=== PATIENT | male | born 1960 | race Caucasian/White ===

== ENCOUNTER 2021-09-06 09:01 | Day surgery (SDC) | payer OTHER, SELFPAY ==
[~2021-09-06] VITALS: Ht 177.8 cm; Wt 81.6 kg
[2021-09-06 10:19] LABS: BASOPHILS # (AUTO) 0.1 K/uL (0.0-0.2); EOSINOPHILS # (AUTO) 0.1 K/uL (0.0-0.4); EOSINOPHILS % (AUTO) 1.5 % (0.0-4.0); HEMATOCRIT 43.2 % (36-54); HEMOGLOBIN 14.7 g/dL (14.0-18.0); LYMPHOCYTES # (AUTO) 1.1 K/uL (1.0-5.5); LYMPHOCYTES % (AUTO) 21.4 % (20.5-51.5); MEAN CORPUSCULAR HEMOGLOBIN 31 pg (27-31); MEAN CORPUSCULAR HGB CONC 34 % (32-36); MEAN CORPUSCULAR VOLUME 92 fL (79.0-98.0); MONOCYTES # (AUTO) 0.6 K/uL (0.0-1.0); NEUTROPHILS # (AUTO) 3.5 K/uL (1.8-7.7); NEUTROPHILS % (AUTO) 65.1 % (40.0-70.0); PLATELET COUNT (AUTO) 381 K/uL (130-430); RED CELL DISTRIBUTION WIDTH 12.5 % (9.0-15.0); WHITE BLOOD COUNT (AUTO) 5.3 K/uL (4.8-10.8)
[2021-09-06] MEDS ORDERED: CEFAZOLIN SOD 2 GM in D5W 50 ML IV ONE (10:45)
[2021-09-06] MEDS ORDERED: MIDAZOLAM HCL 5 MG/5 ML VIAL ONE (14:09)
[2021-09-06] MEDS ORDERED: ceFAZolin SODIUM 1 GM VIAL ONE (14:09)
[2021-09-06] MEDS ORDERED: PROPOFOL 200MG/ 20ML VIAL (DIPRIVAN) IV ONE (14:09)
[2021-09-06] MEDS ORDERED: METOCLOPRAMIDE HCL 10 MG/2 ML VIAL ONE (14:09)
[2021-09-06] MEDS ORDERED: fentaNYL CITRATE 250 MCG/5 ML AMP ONE (14:09)
[2021-09-06] MEDS ORDERED: SEVOFLURANE 15 MIN GAS INH ONE (14:09)
[2021-09-06] MEDS ORDERED: LR 1,000 ML IV.SOLN IV ONE (14:09)
[2021-09-06] MEDS ORDERED: NS IRRIG SOLN 1000 ML IR ONE (14:09)
[2021-09-06] MEDS ORDERED: BUPIVACAINE /EPINEPHRINE/PF 0.25% 30 ML VIAL INJ ONE (14:09)
[2021-09-06] MEDS ORDERED: DEXAMETHASONE SOD PHOSPHATE 4 MG/ML VIAL ONE (14:09)
[2021-09-06] MEDS ORDERED: MORPHINE 4 MG INJ. 4 MG/ML VIAL IVP PRN ×3 (15:15)
[2021-09-06] MEDS ORDERED: MEPERIDINE HCL/PF 25 MG/ML DISP.SYRIN IVP PRN (15:15)
[2021-09-06] MEDS ORDERED: ONDANSETRON HCL 4 MG/2 ML VIAL IVP PRN (15:15)
[2021-09-06] MEDS ORDERED: METOCLOPRAMIDE HCL 10 MG/2 ML VIAL IVP PRN (15:15)
[2021-09-06 17:39] VITALS: BP_SYST 138
== END 2021-09-06 17:30 | disposition home or self-care (01) ==
LOC: SDS 09:01 → SMU 09:26 → SDS 17:30
PROVIDERS: ATTEND Surgery
DX: L76.32 Postprocedural hematoma of skin and subcutaneous tissue following other procedure (principal); M96.840 Postprocedural hematoma of a musculoskeletal structure following a musculoskeletal system procedure; I10 Essential (primary) hypertension; E78.5 Hyperlipidemia, unspecified; Z79.899 Other long term (current) drug therapy; Z20.822 Contact with and (suspected) exposure to COVID-19
CPT/HCPCS: 10140; 36415; 85025; 87070 ×2; 87075; 87186; 87426; J0690; J1100; J2250; J2704; J2765; J3010; J3490; J7060; J7120